=== PATIENT | female | born 1980 | race American Indian/Alaskan Native ===

== ENCOUNTER → 2019-11-25 | Emergency (ER) | payer OTHER ==
[~2019-11-25] VITALS: Ht 165.1 cm; Wt 126.6 kg
[~2019-11-25] MED LIST: KEFLEX500 MG PO; TYLENOL EXTRA500 MG PO
== END | disposition home or self-care (01) ==
LOC: ER 21:47
DX: R10.31 Right lower quadrant pain (principal); R10.2 Pelvic and perineal pain

== ENCOUNTER 2019-12-03 23:07 | Emergency (ER) | payer OTHER ==
[~2019-12-03] VITALS: Ht 165.1 cm; Wt 131.5 kg
[2019-12-04] MEDS ORDERED: PEPCID40 MG PO (04:02)
[2019-12-04] MEDS ORDERED: ZOFRAN4 MG PO (04:04)
== END 2019-12-04 04:11 ==
LOC: ER 23:07
DX: O26.891 Other specified pregnancy related conditions, first trimester (principal); K29.70 Gastritis, unspecified, without bleeding; Z34.81 Encounter for supervision of other normal pregnancy, first trimester

== ENCOUNTER 2020-06-04 17:57 | Emergency (ER) | payer OTHER ==
[~2020-06-04] VITALS: Ht 165.1 cm; Wt 99.8 kg
[~2020-06-04 17:57] MED LIST changes: +PEPCID40 MG PO; +ZOFRAN4 MG PO
[2020-06-04] MEDS ORDERED: VOLTAREN-XR100 MG PO (22:03)
[2020-06-04] MEDS ORDERED: SKELAXIN800 MG PO (22:03)
== END 2020-06-04 22:44 ==
LOC: ER 17:57 → CPU-OBS 18:44 → ER 18:44
DX: R07.89 Other chest pain (principal); R42 Dizziness and giddiness; F06.4 Anxiety disorder due to known physiological condition; T50.995A Adverse effect of other drugs, medicaments and biological substances, initial encounter; Y92.89 Other specified places as the place of occurrence of the external cause; Z20.828 Contact with and (suspected) exposure to other viral communicable diseases
CPT/HCPCS: 70450; 93005; G0378; G0379

== ENCOUNTER → 2021-07-13 | Emergency (ER) | payer OTHER ==
[~2021-07-13] VITALS: Ht 165.1 cm; Wt 108.9 kg
[~2021-07-13] MED LIST changes: +DILANTIN30 MG; +SKELAXIN800 MG PO; +VOLTAREN-XR100 MG PO
== END | disposition left against medical advice (07) ==
LOC: ER 23:00
DX: Z53.21 Procedure and treatment not carried out due to patient leaving prior to being seen by health care provider (principal)

== ENCOUNTER 2023-07-21 23:49 | Emergency (ER) | payer OTHER ==
[~2023-07-21] VITALS: Ht 165.1 cm; Wt 112.5 kg
[2023-07-22] MEDS ORDERED: KEPPRA1000 MG PO ×2 (00:03→01:14)
[2023-07-22] MEDS ORDERED: CHILDREN'S ASPI81 MG PO (00:13)
== END 2023-07-22 01:26 ==
LOC: ER 23:49
DX: G40.802 Other epilepsy, not intractable, without status epilepticus (principal); Z88.0 Allergy status to penicillin; Z91.018 Allergy to other foods